=== PATIENT | male | born 1970 | race Two or more races ===

== ENCOUNTER → 2025-01-06 | Outpatient (CLI) | payer MEDICAID, SELFPAY ==
--- NOTE | 2025-01-06 14:30 | XR_ITS ---
Examination: MRI lumbar spine without contrast Date and time of exam: January 06, 2025 1524 hours INDICATIONS: Low back pain radiating down the right leg 2 years after falling off a ladder COMPARISON: December 10, 2022 Technique: Multiple MRI axial and sagittal sections lumbar spine. Sagittal T2-weighted images, TR 3500, TE 118 T1 weighted transverse sections, TR 688 T8.5, T2-weighted sagittal sections T1 weighted sagittal sections TR 621, TE 30 T2 axial sections, TR 4, 190, TE 84. Findings: Adequate alignment lumbar vertebral bodies on the lateral view No lumbar fracture Moderate to advanced disc narrowing L4-L5 Diffuse lumbar disc desiccation No spondylolisthesis L5-S1 no disc protrusion L4-L5 4 mm central lumbar disc bulges L3-L4 no disc protrusion L2-L3 no disc protrusion L1-L2 no disc protrusion IMPRESSION: Moderate to advanced degenerative disc disease L4-L5 L5-S1 4 mm central lumbar disc bulge
== END | disposition home or self-care (01) ==
PROVIDERS: PCP Nurse Practitioner Primary Care; Referring Provider Chiropractor; Visit Provider Chiropractor
DX: M51.360 Other intervertebral disc degeneration, lumbar region with discogenic back pain only (principal); M51.370 Other intervertebral disc degeneration, lumbosacral region with discogenic back pain only
CPT/HCPCS: 72148